=== PATIENT | female | born 1935 | race Caucasian/White ===

== ENCOUNTER → 2023-11-22 09:45 | Outpatient (REF) | payer OTHER, SELFPAY | LOC: WDC 09:45 | PROVIDERS: ATTENDING PHYSICIAN Nurse Practitioner Adult Health; FAMILY PHYSICIAN Internal Medicine | DX: N64.4 Mastodynia (principal) | CPT/HCPCS: 76642; 77061; 77065 ==

== ENCOUNTER → 2024-02-06 10:45 | Outpatient (REF) | payer OTHER, SELFPAY | LOC: HWRAD 10:45 | PROVIDERS: ATTENDING PHYSICIAN Internal Medicine | DX: G89.29 Other chronic pain (principal); M25.562 Pain in left knee; M17.10 Unilateral primary osteoarthritis, unspecified knee | CPT/HCPCS: 73564 ==

== ENCOUNTER 2024-04-23 13:20 | Outpatient (RCR) | payer OTHER, SELFPAY | END 2024-04-23 23:59 | disposition home or self-care (01) | LOC: RPT 13:20 | PROVIDERS: ATTENDING PHYSICIAN Internal Medicine | DX: M48.062 Spinal stenosis, lumbar region with neurogenic claudication (principal); M54.59 Other low back pain; M47.816 Spondylosis without myelopathy or radiculopathy, lumbar region; Z73.6 Limitation of activities due to disability | CPT/HCPCS: 97112; 97162 ==

== ENCOUNTER → 2024-04-27 11:40 | Outpatient (REF) | payer OTHER, SELFPAY | LOC: MRI 3T 11:40 | PROVIDERS: ATTENDING PHYSICIAN Internal Medicine | DX: M25.562 Pain in left knee (principal) | CPT/HCPCS: 73721 ==

== ENCOUNTER → 2024-06-13 12:24 | Outpatient (REF) | payer OTHER, SELFPAY | LOC: HWRAD 12:24 | PROVIDERS: ATTENDING PHYSICIAN Internal Medicine | DX: R26.89 Other abnormalities of gait and mobility (principal); G43.109 Migraine with aura, not intractable, without status migrainosus; R51.9 Headache, unspecified | CPT/HCPCS: 70450 ==

== ENCOUNTER 2024-07-30 14:56 | Outpatient (RCR) | payer OTHER, SELFPAY | END 2024-07-30 23:59 | disposition home or self-care (01) | LOC: RPT 14:56 | PROVIDERS: ATTENDING PHYSICIAN Student in an Organized Health Care Education/Training Program; FAMILY PHYSICIAN Internal Medicine | DX: M48.062 Spinal stenosis, lumbar region with neurogenic claudication (principal); M47.816 Spondylosis without myelopathy or radiculopathy, lumbar region; M54.59 Other low back pain; Z73.6 Limitation of activities due to disability | CPT/HCPCS: 97010; 97110; 97112; 97162 ==

== ENCOUNTER → 2024-08-10 10:30 | Outpatient (REF) | payer OTHER, SELFPAY | LOC: RAD 10:30 | PROVIDERS: ATTENDING PHYSICIAN Otolaryngology Facial Plastic Surgery; FAMILY PHYSICIAN Internal Medicine | DX: R13.10 Dysphagia, unspecified (principal) | CPT/HCPCS: 74221 ==

== ENCOUNTER 2024-08-17 14:00 | Outpatient (RCR) | payer OTHER, SELFPAY | END 2024-08-17 23:59 | disposition home or self-care (01) | LOC: RPT 14:00 | PROVIDERS: ATTENDING PHYSICIAN Student in an Organized Health Care Education/Training Program; FAMILY PHYSICIAN Internal Medicine | DX: M48.062 Spinal stenosis, lumbar region with neurogenic claudication (principal); M47.816 Spondylosis without myelopathy or radiculopathy, lumbar region; M54.59 Other low back pain; Z73.6 Limitation of activities due to disability; M62.81 Muscle weakness (generalized); G62.9 Polyneuropathy, unspecified; R39.15 Urgency of urination | CPT/HCPCS: 97110; 97112 ==

== ENCOUNTER 2024-09-20 06:06 | Emergency (ER) | payer OTHER, SELFPAY ==
[2024-09-20 06:09] VITALS: BMI 25.1
[2024-09-20 06:13] VITALS: BP 141/57
--- NOTE | 2024-09-20 06:20 | ED.GENMED ---
History of Present Illness
General
Chief Complaint: Weakness
Source: patient
Time Seen by Provider: 09/20/24 06:10
History of Present Illness
History of Present Illness:
88-year-old female brought to the emergency room by ambulance after having difficulty getting up off of her toilet. Patient states that she had gone to the bathroom and while sitting on the toilet noted some difficulty getting herself up to a
standing position. She developed some scotoma but did not have the sensation she was going to pass out. After failing to stand she leaned forward and got off the toilet by kneeling on the floor. She can crawl to her bed and was then able to get
up off the floor and get into bed when she called 911. Patient states that she has been receiving physical therapy for lower back pain related to spinal stenosis. She does admit having difficulty getting up from a standing position at times but
this is a bit more significant. She denies any fever, chills, abdominal pain, chest pain, shortness of breath. She lives alone in a home. She performs all her activities of daily living. She came 'just get checked out 'and is anxious to be
discharged home.
Past History
Past History
ED Past Medical History: Hypercholesterolemia and Hypothyroidism
ED Past Surgical History: Gynecological (Oophorectomy), Orthopedic (Carpal tunnel), Tonsilectomy and Other (Large birthmark removed)
Social History
Tobacco: Non-smoker
Alcohol: None
Drug: None
Living: alone
Employment: Retired
Phy Exam
Physical Exam
Physical Exam:
General: Awake, Alert, Oriented X3. No acute distress. Appears healthy for stated age
Vitals: unremarkable
Head: Atraumatic
Eyes: Pupils equal, EOMI
Throat: Airway intact, no exudates
Neck: Trachea midline
Lungs: Clear and equal b/l
Heart: Regular rate, no murmurs
Abd: Soft, Nontender, No pulsatile mass
Neuro: Cranial nerves intact, muscle strength equal bilaterally
Skin: Warm, dry, no rash
Extremities: pulses equal b/l, no edema
Course
Orders/Labs/Results
Orders:
Orders
09/20/24 06:19
Cardiac Monitoring- Treatment ONCE
09/20/24 06:21
Basic Metabolic Panel Urgent
Complete Blood Count/With Diff Urgent
TSH Reflex To Free T4 Urgent
09/20/24 08:16
Ibuprofen [Motrin] 400 mg PO NOW STA
09/20/24 08:21
Urinalysis Reflex To Culture Urgent
Date Specimen was Collected: 09/20/24
Time Specimen was Collected: 08:17
Urine Microscopic Reflex Cult Urgent
Urine Culture Urgent
RACHID Source: U
Specimen Description:
Date Specimen was Collected: 09/20/24
Time Specimen was Collected: 08:17
09/20/24 08:54
Fosfomycin [Monurol] 3 gm PO ONCE ONE
Abnormal Lab Results
09/20/24 09/20/24
06:21 08:21
MPV 11.8 H fL
(7.4-10.4)
Abs Immat Gran (auto) 0.1 H 10^3/uL
(0-0.05)
Absolute Neuts (auto) 7.2 H 10^3/uL
(1.4-6.5)
Absolute Monos (auto) 1.0 H 10^3/uL
(0.1-0.6)
Lymphocytes % 18.0 L %
(20.5-51.1)
Monocytes % 10.0 H %
(1.7-9.3)
BUN 19 H mg/dl
(7-17)
Glucose 109 H mg/dl
(70-99)
Ur Occult Blood Reflex 1+ A
(Negative)
Leukocyte Esterase Rfl 3+ A
(Negative)
Urine WBC (Reflex) 60-70 A /HPF
(0-5)
Urine Bacteria (Reflex) Few A
(Negative)
Urine Albumin (Reflex) 1+ A
(Neg - Trace)
09/20/24 06:21
09/20/24 06:21
Vital Signs
Initial and Last Documented VS:
Initial Vital Signs
Temp
98.2 F
09/20/24 06:09
Last Documented Vital Signs
Temp Pulse Resp BP Pulse Ox
98.2 F 64 17 151/63 98
09/20/24 06:09 09/20/24 09:15 09/20/24 09:15 09/20/24 08:20 09/20/24 08:00
MDM/Problems Addressed
Differential Diagnosis Includes:
Anemia, electrolyte abnormality, UTI, leg weakness from spinal stenosis and prolonged sitting
MDM/Problems Addressed:
Patient has a nonfocal neurologic exam. Her labs are reassuring other than urinalysis which is quite suggestive of a urinary tract infection with 3+ leukocyte esterase and 60-70 WBCs. She does have 6-10 squamous epithelial cells but I feel the
number of WBCs is suggestive this is a true urinary tract infection. We will treat with a dose of Monurol given her reported allergy to penicillin and cephalosporins as well as sulfa. These may not be true allergies and those medications are
likely safe but given the availability of Monurol will use this.
*Pulse Oximetry
Patient hypoxic: no
*Critical Care Note
Total Time (30-74mins, 75-104mins- exclusive of procedures): Not Applicable
ED Attending Note
-
Portions of this chart may have been created with voice recognition software.� Occasional wrong word or��sound alike� substitutions may have occurred due to the inherent limitations of voice recognition software.
Discharge Plan
Departure
Patient Disposition: Home (Routine Discharge)
Date of Disposition: 09/20/24
Time of Disposition: 08:57
Patient with high blood pressure during this ER visit?: Yes
Condition: Good
Discharge Problem:
Generalized weakness, Acute UTI
Instructions: Urinary tract infections in adults, Generalized Weakness (DC), BLOOD PRESSURE
Prescriptions:
No Action
atorvastatin 10 MG tablet
10 mg PO QPM
levothyroxine [Levoxyl] 25 MCG tablet
12.5 mcg PO DAILY
Referrals:
Harley Tai MD [Family Provider] -
Activity Restrictions/Additional Instructions:
I believe the reason you have difficulty getting off of the toilet today is related to your spinal stenosis as well as a urinary tract infection. We have given you a dose of an antibiotic here in the emergency room which is a one-time dose. You do
not have to have a prescription for any further doses. Follow-up with Dr. Tai. Return to the emergency room if you are feeling like your weakness is worsening or you have other concerns.
Interventions
Interventions:
*Risk Screen - Suicide Last Done: 09/20/24 06:09
*General Assessment Last Done: 09/20/24 06:09
*Neglect/Abuse Screening Last Done: 09/20/24 06:09
*ED- Fall Risk Assessment Last Done: 09/20/24 06:09
*ED COVID-19 Vaccine History Last Done: 09/20/24 06:09
*Nursing Disposition Last Done: 09/20/24 09:50
ED- Cardiac Assessment Last Done: 09/20/24 06:09
ED- Neurological Assessment Last Done: 09/20/24 06:09
ED- Pulmonary Assessment Last Done: 09/20/24 06:09
Discharge Date and Time
Discharge Date/Time: 09/20/24 09:15
Print Language: INDONESIAN
[2024-09-20 06:32] LABS: % Basophils 0.5 % (0-2); % Eosinophils 2.2 % (0-6); % Immature Granulocytes 0.5 % (0-0.5); % Neutrophils 68.8 % (42.2-75.2); Absolute Basophils 0.1 10^3/uL (0-0.2); Absolute Eosinophils 0.2 10^3/uL (0-0.7); Absolute Immature Granulocytes 0.1 10^3/uL (0-0.05); Absolute Lymphocytes 1.9 10^3/uL (1.2-3.4); Absolute Neutrophils 7.2 10^3/uL (1.4-6.5); Hematocrit 41.8 % (37.0-47.0); Mean Corp Hgb Conc. 33.5 g/dL (33.0-37.0); Mean Corpuscular Volume 92.7 fL (81.0-99.0); Mean Platelet Volume 11.8 fL (7.4-10.4); Nucleated Red Blood Cells % 0 %; Platelet Count 254 10^3/uL (130-400); Red Blood Cell Count 4.51 10^6/uL (4.20-5.40); Red Cell Dist. Width 12.5 % (11.5-14.5); White Blood Cell Count 10.4 10^3/uL (4.8-10.8)
[2024-09-20 06:58] LABS: Blood Urea Nitrogen 19 mg/dl (7-17); Calcium 9.5 mg/dl (8.4-10.2); Carbon Dioxide 26 mmol/L (22-30); Chloride 107 mmol/L (98-107); Estimated Creatinine Clearance 35 ml/min; Glucose 109 mg/dl (70-99); Sodium 141 mmol/L (135-145); eGFR > 60.00
[2024-09-20 07:20] LABS: TSH Reflex To Free T4 3.36 uIU/ml (0.47-4.68)
[2024-09-20 08:20] VITALS: BP 151/63
[2024-09-20 08:33] LABS: Urine Albumin 1+ (Neg - Trace); Urine Bilirubin Negative (Negative); Urine Character Slightly Cloudy (Clear); Urine Color Yellow; Urine Glucose Negative (Negative); Urine Ketone Negative (Negative); Urine Leukocyte 3+ (Negative); Urine Nitrite Negative (Negative); Urine Occult Blood 1+ (Negative); Urine Specific Gravity 1.015 (<1.030); Urine Urobilinogen Negative (Neg - 1+)
[2024-09-20 08:46] LABS: Urine Bacteria Few (Negative)
[2024-09-20 08:48] LABS: Urine Red Blood Cell 0-2 /HPF (0-2); Urine White Cell 60-70 /HPF (0-5)
[2024-09-20] MEDS: MOTRIN 400 MG PO (08:48)
[2024-09-20] MEDS: MONUROL 3 GM PO (09:31)
== END 2024-09-20 09:15 | disposition home or self-care (01) ==
LOC: EMR 06:06
PROVIDERS: EMERGENCY PHYSICIAN Emergency Medicine; FAMILY PHYSICIAN Internal Medicine
DX: N39.0 Urinary tract infection, site not specified (principal); R53.1 Weakness; E03.9 Hypothyroidism, unspecified; E78.00 Pure hypercholesterolemia, unspecified
CPT/HCPCS: 99283; 80048; 81003; 81015; 84443; 85025; 87077; 87086

== ENCOUNTER → 2025-01-10 11:30 | Outpatient (REF) | payer OTHER, SELFPAY | LOC: WDC 11:30 | PROVIDERS: ATTENDING PHYSICIAN Internal Medicine | DX: Z12.31 Encounter for screening mammogram for malignant neoplasm of breast (principal) | CPT/HCPCS: 77063; 77067 ==

== ENCOUNTER → 2025-01-11 13:21 | Outpatient (REF) | payer OTHER, SELFPAY | LOC: RAD 13:21 | PROVIDERS: ATTENDING PHYSICIAN Internal Medicine | DX: M81.0 Age-related osteoporosis without current pathological fracture (principal) | CPT/HCPCS: 77080 ==

== ENCOUNTER → 2025-02-27 09:02 | Outpatient (REF) | payer OTHER, SELFPAY | LOC: MRI 3T 09:02 | PROVIDERS: ATTENDING PHYSICIAN Internal Medicine | DX: G43.819 Other migraine, intractable, without status migrainosus (principal); R26.89 Other abnormalities of gait and mobility | CPT/HCPCS: 70551 ==